=== PATIENT | female | born 1950 | race Caucasian/White ===

== ENCOUNTER 2019-06-21 17:21 | Emergency (ER) | payer MEDICARE, OTHER ==
[~2019-06-21] VITALS: Ht 157.5 cm; Wt 69.7 kg
[~2019-06-21 17:21] MED LIST: ALBU18HF INHALATION
[2019-06-21 17:28] VITALS: Ht 157.5 cm; Wt 69.7 kg
[2019-06-21 19:24] VITALS: BP 127/61; PULSE 64; RESP 16
== END 2019-06-21 19:33 | disposition home or self-care (01) ==
LOC: E/R 17:21
DX: R07.89 Other chest pain (principal); J45.909 Unspecified asthma, uncomplicated; I10 Essential (primary) hypertension
CPT/HCPCS: 71045; 80053; 83880; 84484; 85025; 93005